=== PATIENT | male | born 1985 | race Two or more races ===

== ENCOUNTER 2020-02-06 09:37 | Emergency (ER) | payer SELFPAY ==
[~2020-02-06] VITALS: Ht 157.5 cm; Wt 63.5 kg
[2020-02-06] MEDS ORDERED: HYDROcodone-ACET 5/325MG TAB PO ONE (10:45)
[2020-02-06] MEDS ORDERED: TETANUS-DIPTH-ACEL PERTUSSIS 0.5ML SYR Tdap IM ONE (11:30)
[2020-02-06 12:00] VITALS: BP 117/79
== END 2020-02-06 12:52 | disposition home or self-care (01) ==
LOC: ER 09:37
DX: S61.302A Unspecified open wound of right middle finger with damage to nail, initial encounter (principal); X58.XXXA Exposure to other specified factors, initial encounter; Y93.89 Activity, other specified; Y92.89 Other specified places as the place of occurrence of the external cause; Y99.8 Other external cause status
CPT/HCPCS: 73130; 90471; 90715